=== PATIENT | female | born 1985 | race American Indian/Alaskan Native ===

== ENCOUNTER 2018-12-20 22:21 | Emergency (ER) | payer MEDICAID ==
--- NOTE | 2018-12-20 23:02 | EDM.PDOC ---
ED HPI GENERAL MEDICAL PROBLEM - General Chief Complaint: General Stated Complaint: fever, headache Time Seen by Provider: 12/20/18 22:32 Source of Information: Reports: Patient History Limitations: Reports: No Limitations - History of Present Illness INITIAL COMMENTS - FREE TEXT/NARRATIVE: Patient has history of lower back pain and did have a steroidal injection earlier today. This was her second such injection. She developed headache which she also had with her previous injection, but also developed fever. She states that it was 103F and called [facility] for instructions. Was told to come to the ER. Afebrile on presentation here. Denies all other symptomology. No nausea, vomiting, chest pain, has full ROM, does walk with some stiffness to back and neck. No sob, no dizziness, difficulty with ambulation. No incontinence issues. Onset: Today, Gradual Duration: Intermittent Severity: Moderate Worsens with: Reports: None Associated Symptoms: Reports: Fever/Chills Treatments SPIRAL RUNNER: Reports: Acetaminophen Headache Pain Score (Numeric/FACES): 10 - Related Data Allergies Allergy/AdvReac Type Severity Reaction Status Date / Time amoxicillin [Amoxicillin] Allergy Tachycardia Verified 08/13/18 12:55 meloxicam [From Mobic] Allergy Tachycardia Verified 12/20/18 22:32 tramadol Allergy Cannot Verified 08/13/18 12:55 Remember Home Meds: Home Meds . [No Known Home Meds] 12/20/18 [History] Past Medical History Musculoskeletal History: Reports: Back Pain, Chronic Psychiatric History: Reports: Addiction Social & Family History - Tobacco Use Smoking Status *Q: Current Some Day Smoker Years of Tobacco use: 5 Packs/Tins Daily: 0.2 ED ROS GENERAL - Review of Systems Review Of Systems: See Below Constitutional: Reports: Fever HEENT: Reports: No Symptoms Respiratory: Reports: No Symptoms Cardiovascular: Reports: No Symptoms Endocrine: Reports: No Symptoms GI/Abdominal: Reports: No Symptoms : Reports: No Symptoms Musculoskeletal: Reports: Back Pain (chronic) Skin: Reports: No Symptoms Neurological: Reports: Headache ED EXAM, GENERAL - Physical Exam Exam: See Below Exam Limited By: No Limitations General Appearance: Alert, WD/WN, Mild Distress Eye Exam: Bilateral Eye: EOMI, Normal Inspection, PERRL Ears: Normal TMs Nose: Normal Inspection, Normal Mucosa, No Blood Throat/Mouth: Normal Inspection, Normal Lips, Normal Teeth, Normal Gums, Normal Oropharynx, Normal Voice, No Airway Compromise Head: Atraumatic, Normocephalic Neck: Normal Inspection, Supple, Non-Tender, Full Range of Motion Respiratory/Chest: No Respiratory Distress, Lungs Clear, Normal Breath Sounds, No Accessory Muscle Use, Chest Non-Tender Cardiovascular: Normal Peripheral Pulses, Regular Rate, Rhythm, No Edema, No Gallop, No JVD, No Murmur, No Rub Peripheral Pulses: 2+: Posterior Tibial (L), Posterior Tibial (R), Dorsalis Pedis (L), Dorsalis Pedis (R) GI/Abdominal: Normal Bowel Sounds, Soft, Non-Tender, No Organomegaly, No Distention, No Abnormal Bruit, No Mass Back Exam: Normal Inspection Extremities: Normal Inspection, Normal Range of Motion, Non-Tender, Normal Capillary Refill, No Pedal Edema Neurological: Alert, Oriented, CN II-XII Intact, Normal Cognition, Normal Gait, Normal Reflexes, No Motor/Sensory Deficits Psychiatric: Normal Affect, Normal Mood Skin Exam: Wound/Incision, Other (epidural site is C/D/I. No evidence of infection or drainage) Course - Vital Signs Last Recorded V/S: Last Vital Signs Temp 36.6 C 12/20/18 22:33 Pulse 82 12/20/18 22:33 Resp 18 12/20/18 22:33 BP 132/84 12/20/18 22:33 Pulse Ox 98 12/20/18 22:33 Departure - Departure Time of Disposition: 23:14 Disposition: Home, Self-Care 01 Condition: Good Clinical Impression: S/P epidural steroid injection - Discharge Information *PRESCRIPTION DRUG MONITORING PROGRAM REVIEWED*: Not Applicable *COPY OF PRESCRIPTION DRUG MONITORING REPORT IN PATIENT KYA: Not Applicable Instructions: Epidural Steroid Injection, Care After Forms: ED Department Discharge - Problem List & Annotations (1) S/P epidural steroid injection SNOMED Code(s): 001146493, 830222438 Code(s): Z92.241 - PERSONAL HISTORY OF SYSTEMIC STEROID THERAPY Status: Acute Priority: Medium Current Visit: Yes - Problem List Review Problem List Initiated/Reviewed/Updated: Yes - Assessment/Plan Assessment:: s/p steroid injection headache Plan: Plan 1. Stay well hydrated 2. Follow up with [facility] if your headache worsens or you continue to have a fever 3. Your injection site is clean, dry, and intact with no sign of infection 4. You do not have a fever here 5. Follow up with primary care as needed for additional symptom management
[2018-12-20] MEDS: diphenhydrAMINE 25 MG Cap PO ONE (23:08)
== END 2018-12-20 23:10 | disposition home or self-care (01) ==
LOC: VM.ED 22:21
DX: R51 Headache (principal); M54.5 Low back pain; R50.9 Fever, unspecified; F17.210 Nicotine dependence, cigarettes, uncomplicated; Z88.8 Allergy status to other drugs, medicaments and biological substances; Z88.1 Allergy status to other antibiotic agents; Z92.241 Personal history of systemic steroid therapy
CPT/HCPCS: 99283; A9270-GY

== ENCOUNTER 2020-08-24 13:50 | Emergency (ER) | payer OTHER, MEDICAID ==
[2020-08-24] MEDS ORDERED: cefTRIAXone 1 GM, Lidocaine 1% 2.1 ML IM ONE ×2 (14:16)
[2020-08-24] MEDS ORDERED: Diphtheria,Pertussis(Acell),Tetanus Vaccine 0.5 ML Syringe IM ONE (14:17)
[2020-08-24] MEDS ORDERED: Ketorolac 30 MG/ML SDV IM ONE (14:17)
[2020-08-24] MEDS ORDERED: Take Home: Cephalexin 500 MG Cap, 4 Cap Pack PO ONE (14:18)
--- NOTE | 2020-08-24 14:25 | EDM.PDOC ---
ED HPI GENERAL MEDICAL PROBLEM - General Chief Complaint: Upper Extremity Injury/Pain Stated Complaint: R HAND INJURY Time Seen by Provider: 08/24/20 14:15 Source of Information: Reports: Patient History Limitations: Reports: No Limitations - History of Present Illness INITIAL COMMENTS - FREE TEXT/NARRATIVE: Patient comes into the emergency department with a puncture wound to her right hand. Patient states that she was trying to lift up a board and the board fell down on her hand with a nail exposed on the bottom Causing a puncture wound. Patient states that there was minimal bleeding however it is beginning to swell and bruise. She felt that it was important to get it checked out. Patient denies any loss of sensation or range of motion concerns. She states that it is throbbing with discomfort. She states that it does feel better she remains immobile on that hand however she is moving it around she does notice that the throbbing does increase. Patient denies taking any medication or [id number] modalities prior to arrival. Patient also states he has been healthy and has no COVID-19 symptoms. Patient denies any chest pain, shortness of breath, dizziness, lightheadedness, abdominal pain, nausea, dizziness, CMS concerns, range of motion concerns, numbness or tingling in that left upper extremity, or peripheral edema. Onset: Sudden Location: Reports: Upper Extremity, Right Quality: Reports: Throbbing Severity: Moderate Improves with: Reports: Immobilization Worsens with: Reports: Movement Context: Reports: Activity Associated Symptoms: Reports: No Other Symptoms Right Hand Pain Score (Numeric/FACES): 8 - Related Data Allergies Allergy/AdvReac Type Severity Reaction Status Date / Time amoxicillin [Amoxicillin] Allergy Tachycardia Verified 08/24/20 14:05 meloxicam [From Mobic] Allergy Tachycardia Verified 08/24/20 14:05 tramadol Allergy Cannot Verified 08/24/20 14:05 Remember Home Meds: Home Meds cephALEXin [Keflex] 500 mg PO Q8H #18 cap 08/24/20 [Rx] Past Medical History - Past Health History Medical/Surgical History: Denies 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 Constitutional: Reports: No Symptoms Eyes: Reports: No Symptoms Ears: Reports: No Symptoms Nose: Reports: No Symptoms Mouth/Throat: Reports: No Symptoms Respiratory: Reports: No Symptoms Cardiovascular: Reports: No Symptoms GI/Abdominal: Reports: No Symptoms Genitourinary: Reports: No Symptoms Musculoskeletal: Reports: No Symptoms Skin: Reports: No Symptoms Neurological: Reports: No Symptoms Psychiatric: Reports: No Symptoms ED EXAM, GENERAL - Physical Exam Exam: See Below Exam Limited By: No Limitations General Appearance: Alert, WD/WN, No Apparent Distress Head: Atraumatic, Normocephalic Neck: Normal Inspection, Supple, Non-Tender, Full Range of Motion Respiratory/Chest: No Respiratory Distress, No Accessory Muscle Use, Chest Non- Tender Cardiovascular: Normal Peripheral Pulses, Regular Rate, Rhythm, No Edema Peripheral Pulses: 4+: Radial (L), Radial (R) Extremities: Normal Inspection, Normal Range of Motion, No Pedal Edema, Normal Capillary Refill, Other (right hand- posterior middle digit region- puncture wound noted- superficial can note visualize below the dermis. Bruising and mild swelling noted around the edges. No redness, warmth, or bleeding noted) Neurological: Alert, Oriented, CN II-XII Intact, Normal Gait Psychiatric: Normal Affect, Normal Mood Skin Exam: Warm, Dry, Intact, Normal Color Course - Vital Signs Last Recorded V/S: Last Vital Signs Temp 37.1 C 08/24/20 14:06 Pulse 86 08/24/20 14:06 Resp 14 08/24/20 14:06 BP 125/78 08/24/20 14:06 Pulse Ox 100 08/24/20 14:06 - Orders/Labs/Meds Orders: Active Orders 24 hr Category Date Time Status Vaccines to be Administered [RC] PER UNIT ROUTINE Care 08/24/20 14:18 Ordered cephALEXin [Take Home: Cephalexin 500 MG, 4 Cap Pack] Med 08/24/20 14:18 Once 1 packet PO ONETIME ONE Meds: Medications Discontinued Medications Generic Name Dose Route Start Last Admin Trade Name Freq PRN Reason Stop Dose Admin Ceftriaxone Sodium 1 gm/ 0 gm 08/24/20 14:16 Lidocaine HCl 2.1 ml IM 08/24/20 14:17 ONETIME ONE Diphtheria/Tetanus/Acell Pertussis 0.5 ml 08/24/20 14:17 Adacel IM 08/24/20 14:18 .ONCE ONE Ketorolac Tromethamine 30 mg 08/24/20 14:17 Toradol IM 08/24/20 14:18 ONETIME ONE Departure - Departure Time of Disposition: 13:45 Disposition: Home, Self-Care 01 Condition: Good Clinical Impression: Puncture wound - Discharge Information *PRESCRIPTION DRUG MONITORING PROGRAM REVIEWED*: Not Applicable *COPY OF PRESCRIPTION DRUG MONITORING REPORT IN PATIENT KYA: Not Applicable Instructions: Puncture Wound, Cephalexin tablets or capsules, Ceftriaxone injection, Probiotics, Ketorolac injection Referrals: Suyapa Mancera PA-C [Primary Care Provider] - Additional Instructions: 1. rest 2. increase your water intake 3. Take all antibiotics as prescribed even if feeling better 4. Take a probiotic while on antibiotics to help promote healthy GI motility 5. Activity and diet as tolerated 6. Can use Ibuprofen and tylenol for any fever or discomfort 7. Follow up with your PCP or return if symptoms progress or worsen 8. Education provided to you regarding your illness, probiotics, antibiotic prescribed 9. Call with any questions or concerns 10. Elevated the injured area above the level of the heart to decrease swelling and discomfort if applicable 11. Can use ice 3-4 times a day at 20-minute intervals to help with any swelling and discomfort Sepsis Event Note (ED) - Evaluation Sepsis Screening Result: No Definite Risk - Focused Exam Vital Signs: Vital Signs Temp Pulse Resp BP Pulse Ox 08/24/20 14:06 37.1 C 86 14 125/78 100 - My Orders Last 24 Hours: My Active Orders 08/24/20 14:18 Vaccines to be Administered [RC] PER UNIT ROUTINE cephALEXin [Take Home: Cephalexin 500 MG, 4 Cap Pack] 1 packet PO ONETIME ONE - Assessment/Plan Last 24 Hours: My Active Orders 08/24/20 14:18 Vaccines to be Administered [RC] PER UNIT ROUTINE cephALEXin [Take Home: Cephalexin 500 MG, 4 Cap Pack] 1 packet PO ONETIME ONE Assessment:: 1. puncture wound Plan: 1. Wound cleansing completed 2. Rocephin IM given in ER 3. Ketoralac IM given in ER to help with swelling and discomfort 4. Take home Keflex and script provided to patient 5. Tdap vaccine history completed 6. Education regarding wound care, dressing changes, antibiotic use, probiotic use, OTC medications, activity, diet, follow up care and when to seek care if warranted provided 7. Patient is to return to the clinic in 10 days to have sutures site evaluated and removed 8. Patient was encouraged to call or return if any questions or concerns arise.
[2020-08-24] MEDS ORDERED: Diphtheria,Pertussis(Acell),Tetanus Vaccine 0.5 ML Syringe ONE (15:18)
== END 2020-08-24 15:21 | disposition home or self-care (01) ==
LOC: VM.ED 13:50
DX: S61.232A Puncture wound without foreign body of right middle finger without damage to nail, initial encounter (principal); F17.210 Nicotine dependence, cigarettes, uncomplicated; Z23 Encounter for immunization; Z88.1 Allergy status to other antibiotic agents; Z88.8 Allergy status to other drugs, medicaments and biological substances; Z88.5 Allergy status to narcotic agent; Z88.6 Allergy status to analgesic agent; W20.8XXA Other cause of strike by thrown, projected or falling object, initial encounter
CPT/HCPCS: 90471; 90715; 96372; 99283; A9270; J0696; J1885; J2001

== ENCOUNTER 2021-02-16 22:34 | Emergency (ER) | payer MEDICAID, OTHER ==
[2021-02-16] MEDS ORDERED: Dicyclomine 20 MG/2 ML SDV IM ONE (23:12)
[2021-02-16] MEDS ORDERED: Ondansetron 4 MG/2 ML SDV IVPUSH ONE (23:12)
[2021-02-16] MEDS ORDERED: Ketorolac 30 MG/ML SDV IVPUSH ONE (23:12)
--- NOTE | 2021-02-16 23:19 | EDM.PDOC ---
ED HPI GENERAL MEDICAL PROBLEM - General Chief Complaint: Abdominal Pain Stated Complaint: STOMACH PAIN Time Seen by Provider: 02/16/21 23:10 Source of Information: Reports: Patient History Limitations: Reports: No Limitations - History of Present Illness INITIAL COMMENTS - FREE TEXT/NARRATIVE: Patient states approximately 1 hour ago she was sitting down had a sharp sudden pain she rated a 10 out of 10 in the patient points to the right upper quadrant. She states pain now is about a 4 or 5 out of 10 and is gotten better she has some mild nausea. Her last p.o. intake was [employer] pizza approximately at 12 noon today and has not had nothing since. 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 Denies: Black Stool, Bloody Stool, Constipation, Diarrhea, Decreased Appetite (last BM yesterday ), Difficulty Swallowing, Distension, Hematochezia, Melena : Reports: No Symptoms Musculoskeletal: Reports: No Symptoms Skin: Reports: No Symptoms Neurological: Reports: No Symptoms Psychiatric: Reports: No Symptoms Hematologic/Lymphatic: Reports: No Symptoms Immunologic: Reports: No Symptoms ED EXAM, GI/ABD - Physical Exam Exam: See Below Exam Limited By: No Limitations General Appearance: Alert, WD/WN, No Apparent Distress, Other (Mild discomfort noted) Eyes: Bilateral: Normal Appearance Nose: Normal Inspection, Normal Mucosa, No Blood Throat/Mouth: Normal Inspection, Normal Lips, Normal Teeth, Normal Gums, Normal Oropharynx, Normal Voice, No Airway Compromise Head: Atraumatic, Normocephalic Neck: Normal Inspection, Supple, Non-Tender, Full Range of Motion Respiratory/Chest: No Respiratory Distress, Lungs Clear, Normal Breath Sounds, No Accessory Muscle Use, Chest Non-Tender Cardiovascular: Normal Peripheral Pulses, Regular Rate, Rhythm, No Edema, No Gallop, No JVD, No Murmur, No Rub GI/Abdominal Exam: Normal Bowel Sounds, Soft, No Organomegaly, No Distention, No Abnormal Bruit, No Mass, Other (Negative rebound tenderness negative heel slap negative [place]). No: Non-Tender Back Exam: Full Range of Motion Extremities: Normal Inspection, Normal Range of Motion, Non-Tender, No Pedal Edema, Normal Capillary Refill Neurological: Alert, Oriented, CN II-XII Intact, Normal Cognition, Normal Reflexes, No Motor/Sensory Deficits Psychiatric: Normal Affect, Normal Mood Skin Exam: Warm, Dry, Intact, Normal Color, No Rash Course - Vital Signs Text/Narrative:: CBC CMP amylase lipase patient was given Zofran IV Toradol 30 mg IV Bentyl 20 mg IM Patient's lab work all within normal limits she was rechecked she said her pain is 0 and she feels 100% better. She states she is willing to follow-up with her primary care provider and get ultrasound outpatient she states if anything gets worse she will return to the emergency room - Orders/Labs/Meds Labs: Laboratory Tests 02/16/21 02/16/21 Range/Units 23:00 23:00 WBC 9.7 (4.0-10.0) x10^3/uL RBC 4.65 (4.00-5.50) x10^6/uL Hgb 11.4 L (12.0-16.0) g/dL Hct 35.8 (33.0-47.0) % MCV 77.0 L (78.0-93.0) fL MCH 24.5 L (26.0-32.0) pg MCHC 31.8 L (32.0-36.0) g/dL RDW Coeff of Erin 15.4 H (10.0-15.0) % Plt Count 360 (130-400) x10^3/uL Neut % (Auto) 74.1 (50.0-80.0) % Lymph % (Auto) 16.9 L (25.0-50.0) % [place] % (Auto) 7.6 (2.0-11.0) % Eos % (Auto) 1.1 (0.0-4.0) % Baso % (Auto) 0.3 (0.2-1.2) % Sodium 142 (136-145) mmol/L Potassium 3.8 (3.5-5.1) mmol/L Chloride 102 (98-107) mmol/L Carbon Dioxide 25 (21-32) mmol/L Anion Gap 18.8 H (5-15) mmol/L BUN 14 (7-18) mg/dL Creatinine 0.7 (0.55-1.02) mg/dL Est Cr Clr Drug Dosing TNP Estimated GFR (MDRD) > 60 Glucose 100 H (70-99) mg/dL Calcium 9.4 (8.5-10.1) mg/dL Corrected Calcium 9.1 (8.5-10.1) mg/dL Total Bilirubin 0.3 (0.2-1.0) mg/dL AST 22 (15-37) U/L ALT 26 (14-59) U/L Alkaline Phosphatase 75 (46-116) U/L Total Protein 8.5 H (6.4-8.2) g/dL Albumin 4.4 (3.4-5.0) g/dL Globulin 4.1 Albumin/Globulin Ratio 1.07 Amylase 72 (25-115) U/L Lipase 123 (73-393) U/L Meds: Medications Discontinued Medications Generic Name Dose Route Start Last Admin Trade Name Jose Lq PRN Reason Stop Dose Admin Dicyclomine HCl 20 mg 02/16/21 23:12 02/16/21 23:18 Dicyclomine 20 Mg/2 Ml Sdv IM 02/16/21 23:13 20 mg ONETIME ONE Administration Ketorolac Tromethamine 30 mg 02/16/21 23:12 02/16/21 23:17 Ketorolac 30 Mg/Ml Sdv IVPUSH 02/16/21 23:13 30 mg ONETIME ONE Administration Ondansetron HCl 4 mg 02/16/21 23:12 02/16/21 23:17 Ondansetron 4 Mg/2 Ml Sdv IVPUSH 02/16/21 23:13 4 mg ONETIME ONE Administration Departure - Departure Time of Disposition: 23:45 Disposition: Home, Self-Care 01 Condition: Good Clinical Impression: Acute abdominal pain, Biliary colic symptom - Discharge Information *PRESCRIPTION DRUG MONITORING PROGRAM REVIEWED*: No *COPY OF PRESCRIPTION DRUG MONITORING REPORT IN PATIENT KYA: No Referrals: Suyapa Mancera PA-C [Primary Care Provider] - Forms: ED Department Discharge - Problem List & Annotations (1) Acute abdominal pain SNOMED Code(s): 265793413 Code(s): R10.9 - UNSPECIFIED ABDOMINAL PAIN Status: Acute Current Visit: Yes (2) Biliary colic symptom SNOMED Code(s): 63400159 Code(s): K80.50 - CALCULUS OF BILE DUCT W/O CHOLANGITIS OR CHOLECYST W/O OBST Status: Acute Current Visit: Yes
[2021-02-16 23:28] LABS: CHLORIDE,CL 102 mmol/L (98-107); SODIUM,NA 142 mmol/L (136-145)
[2021-02-16 23:29] LABS: ANION GAP 18.8 mmol/L (5-15)
== END 2021-02-17 00:06 | disposition home or self-care (01) ==
LOC: VM.ED 22:34
DX: R10.11 Right upper quadrant pain (principal); Z88.0 Allergy status to penicillin; Z88.5 Allergy status to narcotic agent; Z88.8 Allergy status to other drugs, medicaments and biological substances
CPT/HCPCS: 80053; 82150; 83690; 85025; 96372; 96374; 96375; 99284; 99284-25; J0500; J1885; J2405

== ENCOUNTER 2021-03-16 16:11 | Emergency (ER) | payer MEDICAID ==
[2021-03-16] MEDS ORDERED: HYDROmorphone 1 MG/ML Syringe SUBCUT ONE (16:28)
[2021-03-16] MEDS ORDERED: Ondansetron 4 MG Tab.DIS PO ONE (16:28)
--- NOTE | 2021-03-16 16:34 | EDM.PDOC ---
ED HPI GENERAL MEDICAL PROBLEM - General Chief Complaint: Abdominal Pain Stated Complaint: STOMACH PAIN Time Seen by Provider: 03/16/21 16:20 Source of Information: Reports: Patient History Limitations: Reports: No Limitations - History of Present Illness INITIAL COMMENTS - FREE TEXT/NARRATIVE: Patient had laparoscopic cholecystectomy one week ago in [place] and had been taking it easy. She sneezed last night and had increased pain in the ruq area. She tried to sleep and at 11 am today she decided to get out of bed and took tylenol and motrin for the continued pain. She denies fevers, has eaten and drank normally. normal urination and bowel movement. Is out of the narcotic pain medication from surgery. The pain continued and she decided to come in. She did call [place] but was told there is a wait so decided to come here. Onset Date: 03/15/21 Duration: Getting Worse Location: Reports: Abdomen Quality: Reports: Burning, Stabbing Severity: Moderate Improves with: Reports: Medication Worsens with: Reports: Movement Associated Symptoms: Reports: No Other Symptoms. 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 Right Upper Abdomen Pain Score (Numeric/FACES): 8 - Related Data Allergies Allergy/AdvReac Type Severity Reaction Status Date / Time amoxicillin [Amoxicillin] Allergy Tachycardia Verified 03/16/21 16:25 meloxicam [From Mobic] Allergy Tachycardia Verified 03/16/21 16:25 tramadol Allergy Cannot Verified 03/16/21 16:25 Remember Home Meds: Home Meds Naltrexone 25 mg PO DAILY 03/16/21 [History] Pregabalin [Lyrica] 100 mg PO TID 03/16/21 [History] Past Medical History - Past Health History Medical/Surgical History: Denies Medical/Surgical History 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 Denies: Fever, Chills HEENT: Reports: No Symptoms Respiratory: Reports: No Symptoms. Denies: Shortness of Breath, Pleuritic Chest Pain Cardiovascular: Reports: No Symptoms. Denies: Chest Pain GI/Abdominal: Reports: Abdominal Pain. Denies: Constipation, Diarrhea, Decreased Appetite, Hematochezia, Melena : Reports: No Symptoms. Denies: Dysuria Musculoskeletal: Reports: No Symptoms Skin: Reports: Other (surgical wounds without drainage, redness or dehiscence) Neurological: Reports: No Symptoms Psychiatric: Reports: Anxiety ED EXAM, GI/ABD - Physical Exam Exam: See Below Exam Limited By: No Limitations General Appearance: Alert, Anxious Eyes: Bilateral: Normal Appearance, EOMI Ears: Normal External Exam Nose: Normal Inspection Throat/Mouth: Normal Inspection, Normal Lips, Normal Teeth, Normal Oropharynx, No Airway Compromise Head: Atraumatic Neck: Normal Inspection Respiratory/Chest: No Respiratory Distress, Lungs Clear, Normal Breath Sounds, No Accessory Muscle Use, Chest Non-Tender Cardiovascular: Normal Peripheral Pulses, Regular Rate, Rhythm, No Murmur GI/Abdominal Exam: Normal Bowel Sounds, Soft, Tender (ruq without rebound), Other (surgical wounds without dehiscence). No: Rigid, Rebound (Female) Exam: Deferred Extremities: Normal Inspection, Normal Range of Motion Neurological: Alert, Oriented Psychiatric: Anxious (tearful at times) Course - Vital Signs Last Recorded V/S: Last Vital Signs Temp 36.9 C 03/16/21 16:15 Pulse 89 03/16/21 16:15 Resp 20 03/16/21 16:15 BP 141/83 H 03/16/21 16:15 Pulse Ox 100 03/16/21 16:15 - Orders/Labs/Meds Orders: Active Orders 24 hr Category Date Time Status Sodium Chloride 0.9% [Saline Flush] Med 03/16/21 17:20 Active 10 ml FLUSH ASDIRECTED PRN Peripheral IV Insertion Adult [OM.PC] Routine Oth 03/16/21 17:20 Ordered Medication Orders Sodium Chloride (Sodium Chloride 0.9% 10 Ml Syringe) 10 ml FLUSH ASDIRECTED PRN PRN Reason: Keep Vein Open Labs: Laboratory Tests 03/16/21 03/16/21 Range/Units 16:45 16:45 WBC 8.2 (4.0-10.0) x10^3/uL RBC 4.67 (4.00-5.50) x10^6/uL Hgb 11.3 L (12.0-16.0) g/dL Hct 36.2 (33.0-47.0) % MCV 77.5 L (78.0-93.0) fL MCH 24.2 L (26.0-32.0) pg MCHC 31.2 L (32.0-36.0) g/dL RDW Coeff of Erin 14.9 (10.0-15.0) % Plt Count 324 (130-400) x10^3/uL Neut % (Auto) 72.6 (50.0-80.0) % Lymph % (Auto) 17.1 L (25.0-50.0) % [place] % (Auto) 8.2 (2.0-11.0) % Eos % (Auto) 1.7 (0.0-4.0) % Baso % (Auto) 0.4 (0.2-1.2) % Sodium 138 (136-145) mmol/L Potassium 3.6 (3.5-5.1) mmol/L Chloride 104 (98-107) mmol/L Carbon Dioxide 24 (21-32) mmol/L Anion Gap 13.6 (5-15) mmol/L BUN 15 (7-18) mg/dL Creatinine 0.9 (0.55-1.02) mg/dL Est Cr Clr Drug Dosing TNP Estimated GFR (MDRD) > 60 Glucose 114 H (70-99) mg/dL Calcium 8.5 (8.5-10.1) mg/dL Corrected Calcium 8.4 L (8.5-10.1) mg/dL Total Bilirubin 0.4 (0.2-1.0) mg/dL AST 44 H (15-37) U/L ALT 210 H (14-59) U/L Alkaline Phosphatase 115 (46-116) U/L Total Protein 8.2 (6.4-8.2) g/dL Albumin 4.1 (3.4-5.0) g/dL Globulin 4.1 Albumin/Globulin Ratio 1.00 Lipase 110 (73-393) U/L Meds: Medications Generic Name Dose Route Start Last Admin Trade Name Freq PRN Reason Stop Dose Admin Sodium Chloride 10 ml 03/16/21 17:20 Sodium Chloride 0.9% 10 Ml Syringe FLUSH ASDIRECTED PRN Keep Vein Open Discontinued Medications Generic Name Dose Route Start Last Admin Trade Name Freq PRN Reason Stop Dose Admin Dicyclomine HCl 10 mg 03/16/21 17:20 03/16/21 17:39 Dicyclomine 10 Mg Cap PO 03/16/21 17:21 10 mg ONETIME ONE Administration Hydromorphone HCl 1 mg 03/16/21 16:28 03/16/21 16:40 Hydromorphone 1 Mg/Ml Syringe SUBCUT 03/16/21 16:29 1 mg ONETIME ONE Administration Sodium Chloride 1,000 mls @ 999 mls/hr 03/16/21 17:19 03/16/21 17:39 Normal Saline IV 03/16/21 18:19 999 mls/hr ONETIME ONE Administration Iopamidol 100 ml 03/16/21 17:33 Iopamidol 612 Mg/Ml 100 Ml Bottle IVPUSH 03/16/21 17:34 ONETIME ONE Ondansetron HCl 4 mg 03/16/21 16:28 03/16/21 16:40 Ondansetron 4 Mg Tab.Dis PO 03/16/21 16:29 4 mg ONETIME ONE Administration - Radiology Interpretation Free Text/Narrative:: ct with postsurgical changes of cholecystectomy, cecum has fluid distention, some inflammatory change. small amount of free fluids in the pelvis - Re-Assessments/Exams Free Text/Narrative Re-Assessment/Exam: 03/16/21 16:49 Patient has increased pain after sneezing one week after cholecystectomy. vitals stable, eating and drinking well. Will check labs, will give im dilaudid 1 mg and zofran odt 4 mg. 03/16/21 17:07 Patient was informed she was getting dilaudid. Now is upset that she received a narcotic as she states she has an addiction to narcotics. 03/16/21 17:25 Patient is doing better. LFT's slightly elevated, need to rule out abscess versus bile duct leak. Will start IV with normal saline bolus, Ct abdomen pelvis with IV contrast. PO bentyl helped in the past. Will take this Free Text/Narrative Re-Assessment/Exam: 03/16/21 18:36 Patient is feeling better. the fluid in the cecum and right colon does abut the liver and could be causing her problems No diarrhea, no fever and no elevated white count. Advised to use some miralax to move the stool so see if that improves the pain. Will follow up with surgeon tomorrow. NO RLQ pain Departure - Departure Time of Disposition: 18:32 Disposition: Home, Self-Care 01 Clinical Impression: Abdominal pain - Discharge Information *PRESCRIPTION DRUG MONITORING PROGRAM REVIEWED*: Not Applicable *COPY OF PRESCRIPTION DRUG MONITORING REPORT IN PATIENT KYA: Not Applicable Instructions: Abdominal Pain, Adult, [id number], Preventing Constipation After Surgery Referrals: PCP,Not In Area [Primary Care Provider] - Forms: ED Department Discharge Additional Instructions: Ct tonight reveal some increased stool, but the liver and gall bladder bed appear good without any problems. Take a capful of miralax tonight in 8 ounces of water. Call you surgeon tomorrow for continued problems Sepsis Event Note (ED) - Evaluation Sepsis Screening Result: No Definite Risk - Focused Exam Vital Signs: Vital Signs Temp Pulse Resp BP Pulse Ox 03/16/21 16:15 36.9 C 89 20 141/83 H 100 - My Orders Last 24 Hours: My Active Orders 03/16/21 17:20 Sodium Chloride 0.9% [Saline Flush] 10 ml FLUSH ASDIRECTED PRN Peripheral IV Insertion Adult [OM.PC] Routine - Assessment/Plan Last 24 Hours: My Active Orders 03/16/21 17:20 Sodium Chloride 0.9% [Saline Flush] 10 ml FLUSH ASDIRECTED PRN Peripheral IV Insertion Adult [OM.PC] Routine
[2021-03-16 17:16] LABS: CHLORIDE,CL 104 mmol/L (98-107); SODIUM,NA 138 mmol/L (136-145)
[2021-03-16 17:17] LABS: ANION GAP 13.6 mmol/L (5-15)
[2021-03-16] MEDS ORDERED: Sodium Chloride 0.9% 1,000 ML IV ONE (17:19)
[2021-03-16] MEDS ORDERED: Sodium Chloride 0.9% 10 ML Syringe FLUSH PRN (17:20)
[2021-03-16] MEDS ORDERED: Dicyclomine 10 MG Cap PO ONE (17:20)
[2021-03-16] MEDS ORDERED: Iopamidol 612 MG/ML 100 ML Bottle IVPUSH ONE (17:33)
--- NOTE | 2021-03-16 18:29 | CT ---
[id number] CT/CT Abdomen Pelvis W IV EXAM: CT Abdomen Pelvis W IV CLINICAL DATA: ABDOMINAL PAIN, RECENT CHOLECYSTECTOMY, EVAL LFT COMPARISON STUDY: None. FINDINGS: Lung bases are clear. Liver, spleen, pancreas, adrenal glands, and kidneys are unremarkable. The gallbladder is surgically absent. Fluid distention of the cecum with surrounding inflammatory change. No evidence of obstruction. Small amount of free fluid within the pelvis. Scattered changes of spondylosis the spine. No fracture or osseous lesion. IMPRESSION: 1. Postsurgical changes following recent cholecystectomy. The cecum is prominent with fluid distention and surrounding inflammatory change. Findings could be seen with focal colitis. 2. Small amount of free fluid within the pelvis. Sanya Jenkins DO 03/16/21 1829 Thank you for allowing us to participate in the care of your patient.
== END 2021-03-16 18:40 | disposition home or self-care (01) ==
LOC: VM.ED 16:11
DX: R10.11 Right upper quadrant pain (principal); Z88.0 Allergy status to penicillin; Z88.5 Allergy status to narcotic agent; Z88.8 Allergy status to other drugs, medicaments and biological substances
CPT/HCPCS: 36415; 74177; 80053; 83690; 85025; 96372; 99284; A9270; J1170; J7030; Q9967

== ENCOUNTER 2023-02-12 15:39 | Emergency (ER) | payer MEDICAID ==
[2023-02-12] MEDS ORDERED: GI Cocktail Oral Solution 30 ML PO ONE ×2 (15:46)
== END 2023-02-12 16:09 | disposition home or self-care (01) ==
LOC: VM.ED 15:39
DX: K29.70 Gastritis, unspecified, without bleeding (principal); Z88.0 Allergy status to penicillin; Z88.5 Allergy status to narcotic agent; Z88.8 Allergy status to other drugs, medicaments and biological substances; Z90.49 Acquired absence of other specified parts of digestive tract
CPT/HCPCS: 99283; 99284; A9270

== ENCOUNTER 2024-12-22 03:40 | Emergency (ER) | payer MEDICAID ==
[2024-12-22] MEDS: Cephalexin 250 MG Cap PO ONE (04:13)
[2024-12-22] MEDS: Lidocaine 1% 10 ML MDV INJECT ONE (04:14)
== END 2024-12-22 04:17 | disposition home or self-care (01) ==
LOC: VM.ED 03:40
DX: S61.412A Laceration without foreign body of left hand, initial encounter (principal); Z88.0 Allergy status to penicillin; Z88.5 Allergy status to narcotic agent; Z88.8 Allergy status to other drugs, medicaments and biological substances; Z79.899 Other long term (current) drug therapy; W22.8XXA Striking against or struck by other objects, initial encounter; Y93.89 Activity, other specified
CPT/HCPCS: 12001; 99282; A9270; J2003